=== PATIENT | female | born 2000 | race Caucasian/White ===

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

== ENCOUNTER 2023-08-10 21:10 | Emergency (ER) | payer BC, MEDICAID, OTHER ==
[2023-08-10] MEDS ORDERED: Sodium Chloride 0.9% 10 ML Syringe FLUSH PRN (21:17)
[2023-08-10] MEDS: Ondansetron 4 MG/2 ML SDV IVPUSH ONE (21:26)
[2023-08-10] MEDS: Morphine 4 MG/ML VIAL IVPUSH ONE (21:26)
[2023-08-10] MEDS: Sodium Chloride 0.9% 1,000 ML IV SCH (21:26)
[2023-08-10 21:35] LABS: BLOOD UREA NITROGEN,BUN 9 mg/dL (7-18); CALCIUM 9.2 mg/dL (8.6-10.2); CARBON DIOXIDE,CO2 27 mmol/L (21-32); CHLORIDE,CL 103 mmol/L (100-110); EOSINOPHILS PERCENT AUTO 0.1 % (0.6-8.1); EST CRCL DRUG DOSING (CG) 69.68 mL/min; ESTIMATED GFR 82 mL/min (>60); GLUCOSE RANDOM 120 mg/dL (80-116); MONOCYTES ABSOLUTE AUTO 0.3 x10-3/uL (0.3-1.0); POTASSIUM,K 3.6 mmol/L (3.5-5.3); SODIUM,NA 141 mmol/L (135-145)
[2023-08-10 21:39] LABS: BASOPHILS ABSOLUTE AUTO 0.1 x10-3/uL (0.0-0.1); BASOPHILS PERCENT AUTO 0.9 % (0.2-1.5); HEMATOCRIT 40.8 % (34.2-48.2); HEMOGLOBIN 14.3 g/dL (11.4-15.5); LYMPHOCYTES ABSOLUTE AUTO 0.9 x10-3/uL (1.0-4.4); LYMPHOCYTES PERCENT AUTO 13.3 % (18.4-52.1); MEAN CORPUSCULAR HEMOGLOBIN 32.3 pg (23.9-33.9); MEAN CORPUSCULAR VOLUME 92.3 fL (76.7-100.5); MEAN PLATELET VOLUME 9.1 fL (7.1-12.4); MONOCYTES PERCENT AUTO 4.5 % (4.4-15.7); NEUTROPHILS ABSOLUTE AUTO 5.2 x10-3/uL (1.5-6.3); NEUTROPHILS PERCENT AUTO 81.2 % (30.8-76.2); PLATELET COUNT,PLT 185 x10(3)uL (151-488); RED BLOOD CELL COUNT 4.42 x10(6)uL (3.60-5.20); RED CELL DISTRIBUTION WIDTH 11.9 % (12.3-16.5); WHITE BLOOD CELL COUNT,WBC 6.5 x10-3/uL (3.0-10.3)
[2023-08-10 21:40] LABS: A/G RATIO 1.5; ALANINE AMINOTRANSFERASE,ALT 17 U/L (12-36); ALBUMIN 4.5 g/dL (3.5-5.2); ALKALINE PHOSPHATASE 50 IU/L (56-112); ASPARTATE AMNIOTRANSFERASE,AST 14 IU/L (5-25); BILIRUBIN TOTAL 0.5 mg/dL (0.1-1.3); PROTEIN TOTAL,TP 7.6 g/dL (6.0-8.0)
[2023-08-10 21:45] LABS: LIPASE 21 U/L (16-77)
[2023-08-10 21:52] LABS: HCG QUANTITATIVE < 5 mIU/mL (<5)
[2023-08-10] MEDS: HYDROmorphone 2 MG/ML SDV IVPUSH ONE (22:10)
[2023-08-10] MEDS: Iopamidol 755 Mg/ML 100 ML Bottle IV SCH (22:15)
[2023-08-10 22:38] VITALS: BP 116/68; PULSE 73
== END 2023-08-10 22:39 | disposition home or self-care (01) ==
LOC: FB.ED 21:10
DX: K29.70 Gastritis, unspecified, without bleeding (principal); R10.11 Right upper quadrant pain; R10.2 Pelvic and perineal pain
CPT/HCPCS: 74177; 80053; 83690; 84702; 85025; 96361; 96374; 96375; 99284; J1170; J2270; J2405; J7030; Q9967

== ENCOUNTER 2024-03-04 18:24 | Emergency (ER) | payer MEDICAID, OTHER ==
[2024-03-04] MEDS ORDERED: Lidocaine 1% 5 ML VIAL INFILT ONE (18:25)
[2024-03-04 18:40] VITALS: BP 142/59; PULSE 74
== END 2024-03-04 19:58 | disposition home or self-care (01) ==
LOC: FB.ED 18:24
DX: S61.211A Laceration without foreign body of left index finger without damage to nail, initial encounter (principal); Z90.89 Acquired absence of other organs; W26.0XXA Contact with knife, initial encounter
CPT/HCPCS: 12001; 99282

== ENCOUNTER 2024-09-28 23:47 | Emergency (ER) | payer OTHER, MEDICAID ==
[2024-09-29] MEDS: Prochlorperazine 10 MG/2 ML SDV IVPUSH ONE (00:27)
[2024-09-29 00:29] LABS: MEAN PLATELET VOLUME 9.0 fL (7.1-12.4); PLATELET COUNT,PLT 213 x10(3)uL (151-488); RED BLOOD CELL COUNT 4.80 x10(6)uL (3.60-5.20); RED CELL DISTRIBUTION WIDTH 12.0 % (12.3-16.5); WHITE BLOOD CELL COUNT,WBC 8.1 x10-3/uL (3.0-10.3)
[2024-09-29] MEDS: Alum Hydroxide/Mag Hydroxide 15 ML, Lidocaine 2% 15 ML PO ONE (00:30)
[2024-09-29 00:33] LABS: BLOOD UREA NITROGEN,BUN 11 mg/dL (7-18); CARBON DIOXIDE,CO2 29 mmol/L (21-32); CHLORIDE,CL 99 mmol/L (100-110); CREATININE 1.1 mg/dL (0.55-1.02); ESTIMATED GFR 73 mL/min (>60); GLUCOSE RANDOM 129 mg/dL (80-116); POTASSIUM,K 3.8 mmol/L (3.5-5.3); SODIUM,NA 139 mmol/L (135-145)
[2024-09-29 00:39] LABS: A/G RATIO 1.4; ALANINE AMINOTRANSFERASE,ALT 22 U/L (12-36); ASPARTATE AMNIOTRANSFERASE,AST 20 IU/L (5-25); BILIRUBIN TOTAL 0.8 mg/dL (0.1-1.3); PROTEIN TOTAL,TP 8.2 g/dL (6.0-8.0)
[2024-09-29 00:47] LABS: LYMPHOCYTES PERCENT MAN 9 % (13-37); MONOCYTES PERCENT MAN 6 % (4-12); SEG NEUTROPHILS PERCENT MAN 85 % (46-82)
[2024-09-29 01:28] VITALS: BP 108/71; PULSE 93
== END 2024-09-29 01:01 | disposition home or self-care (01) ==
LOC: FB.ED 23:47
DX: R11.2 Nausea with vomiting, unspecified (principal)
CPT/HCPCS: 80053; 83690; 85025; 96361; 96374; 99284-25; A9270-GY; J0780; J7030

== ENCOUNTER 2024-11-04 06:30 | Day surgery (SDC) | payer OTHER, MEDICAID ==
[~2024-11-04 06:30] MED LIST: Sodium Chloride 0.9% 10 ML Syringe FLUSH PRN
[2024-11-04] MEDS ORDERED: Propofol 200 MG/20 ML SDV IV ONE (06:31)
[2024-11-04] MEDS: Lactated Ringers 1,000 ML IV SCH (07:01)
[2024-11-04 08:42] VITALS: BP 114/64; PULSE 67
== END 2024-11-04 08:34 | disposition home or self-care (01) ==
LOC: FB.SDS 06:30
PROVIDERS: ATTEND Surgery
DX: K29.50 Unspecified chronic gastritis without bleeding (principal); K20.90 Esophagitis, unspecified without bleeding; K22.89 Other specified disease of esophagus; K44.9 Diaphragmatic hernia without obstruction or gangrene; Z88.8 Allergy status to other drugs, medicaments and biological substances; Z79.899 Other long term (current) drug therapy
CPT/HCPCS: 00731; 43239; 81025; 88305; 88342; A9270; J2003; J2704; J7120